=== PATIENT | female | born 1965 | race Caucasian/White ===

== ENCOUNTER 2020-08-27 16:32 | Emergency (ER) | payer OTHER ==
[2020-08-27] MEDS ORDERED: HYDROMORPHONE HCL INJ/PF 2 MG/ML AMPULE IV ONE ×2 (17:17→18:10)
[2020-08-27] MEDS ORDERED: ONDANSETRON HCL INJ/PF 4 MG/2 ML SDV IV ONE (17:17)
--- NOTE | 2020-08-27 17:29 | ER Document Report ---
ED General - General Chief Complaint: Wrist Injury Stated Complaint: FALL/WRIST PAIN Time Seen by Provider: 08/27/20 17:07 Primary Care Provider: LEENA VELAZQUEZ MD [Primary Care Provider] - Follow up as needed - HPI Notes: Chief complaint: Fall with injury right wrist History of present illness: Generally healthy 54-year-old female lost her balance as she reached for a towel while getting out of the shower at home and the towel rack broke causing her to fall to the floor and she injured her wrist by bearing her full weight on the right wrist. The wrist is obviously deformed and painful and EMS was called and she was transported here. They administered morphine during transport. She still rates her pain about 6/10. She denies other injuries and specifically denies striking her head or losing consciousness. Last meal was about noon today. No oral intake since then. She has had general anesthesia several times in the past without complications. Patient is treated for mild hypertension taking hydrochlorothiazide and is on no other long-term treatment for any medical issue. - Related Data Allergies/Adverse Reactions: codeine Allergy (Verified 08/27/20 17:18) naproxen Allergy (Verified 08/27/20 17:18) sulfamethoxazole [From Septra] Allergy (Verified 08/27/20 17:18) trimethoprim [From Aprra] Allergy (Verified 08/27/20 17:18) Home Medications: HCTZ 25MG Past Medical History - General Information source: Patient, Relative, Emergency Med Personnel - Social History Smoking Status: Never Smoker Frequency of alcohol use: Rare Drug Abuse: None Lives with: Family Family History: Reviewed & Not Pertinent - Past Medical History Cardiac Medical History: Reports: Hx Hypertension Endocrine Medical History: Denies: Hx Diabetes Mellitus Type 1, Hx Diabetes Mellitus Type 2 Renal/ Medical History: Reports: Other - 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 Past Surgical History: Reports: Hx Kidney (Renal Surgery) - Left nephrectomy for benign tumor Review of Systems - Review of Systems Notes: Constitutional: Negative for fever. HENT: Negative for sore throat. Eyes: Negative for visual changes. Cardiovascular: Negative for chest pain. Respiratory: Negative for shortness of breath. Gastrointestinal: Negative for abdominal pain, vomiting or diarrhea. Genitourinary: Negative for dysuria. Musculoskeletal: As per HPI. Skin: Negative for rash. Neurological: Negative for headaches, weakness or numbness. 10 point ROS negative except as marked above and in HPI. Physical Exam - Vital signs Vitals: Resp Pulse Ox 19 98 08/27/20 17:48 08/27/20 17:48 - Notes Notes: GENERAL: Female patient approximately stated age with obvious deformity of right wrist appearing in moderate pain. SKIN: Good turgor no rashes. HEAD: Normocephalic atraumatic. EYES: PERRLA. EOMI. Conjunctivae and sclerae clear. EARS: CANALS AND TMS CLEAR. NOSE: CLEAR. MOUTH: Moist mucosa. Good dentition. No stridor or edema. No drooling. NECK: Supple. No masses or thyromegaly. No adenopathy. Carotids 2+ without bruits. No JVD. BACK: Symmetrical without tenderness. CHEST: Respirations unlabored. Breath sounds clear and symmetrical. HEART: Regular rhythm. No murmur gallop or rub. ABDOMEN: Soft nontender without masses, organomegaly or rebound. Bowel sounds normally active. No bruits. GENITALIA: Deferred. EXTREMITIES: Silver fork deformity right wrist with associated swelling and tenderness primarily over the distal radius. Radial and ulnar pulses are strong. Normal capillary refill and sensation distally. No edema. No calf tenderness. Cap refill less than 1.5 seconds. Dorsalis pedis and posterior tibial pulses 3+ and symmetrical. NEUROLOGICAL: GCS 15. Alert and oriented x3. Normal gait. Fluent speech. Cranial nerves II through XII intact. Sensorimotor and cerebellar normal. Normal tone. PSYCHIATRIC: Appropriate affect. Course - Re-evaluation Re-evalutation: 08/27/20 18:43 Patient presented with a Colles' fracture of the right wrist. She was given IV Zofran and IV Dilaudid. Wrist was reduced under procedural sedation and splinted. Good reduction which was tolerated well clinically. Patient is stable for outpatient follow-up with orthopedics. Findings, clinical impression and plan of treatment have been discussed with patient/family. Understanding of current findings and recommendations has been acknowledged by them and there is agreement regarding disposition and follow-up. - Vital Signs Vital signs: Temp Pulse Resp BP Pulse Ox 98.4 F 103 H 17 148/83 H 97 08/27/20 17:53 08/27/20 18:28 08/27/20 18:28 08/27/20 18:28 08/27/20 18:28 - Laboratory Results Critical Laboratory Results Reviewed: No Critical Results - Radiology Results Radiology Results Interpreted: 08/27/20 18:51 Wrist X-Ray 08/27/20 16:45 IMPRESSION: Acute intra-articular fracture dislocation of the distal radius. Dorsal angulation distal fracture fragments. Nondisplaced fracture ulnar styloid process. Elbow X-Ray 08/27/20 17:20 IMPRESSION: NEGATIVE STUDY OF THE RIGHT ELBOW. NO RADIOGRAPHIC EVIDENCE OF ACUTE INJURY. Wrist X-Ray 08/27/20 18:29 IMPRESSION: Postreduction images. Critical Radiology Results Reviewed: Yes Attending or Supervising Physician who Reviewed Radiology: NIURKA BREWSTER Procedures - Conscious Sedation Conscious sedation Time started: 18:18 Time completed: 18:30 Consent obtained: Yes Indication: Closed reduction Colles' fracture Last meal: Noon Emergent conditions applies.: E. - ASA Classification Pt with a mild systemic disease.: P2. - ASA Classification. Airway Evaluation: Normal anatomy Mallampati Classification: Class 2 Used during procedure: Suction available, IV access obtained, Pulse ox on pt., engine monitor on pt. Medications administered: Etomidate I personally performed/intraservice time: Sedation, Procedure, 30 min or less Complications: No - Immobilization Right Arm Time completed: 18:30 Pre-Proc Neuro Vasc Exam: Normal Immobilizer type: Sugar tong, Sling Performed by: PCT Post-Proc Neuro Vasc Exam: Normal Alignment checked and good: Yes - Joint Reduction/Fracture Care Right Wrist Time completed: 18:30 Consent obtained: Yes Conscious sedation: Yes Pre-procedure NV exam: Yes Fracture: Closed Manipulation comment: Manipulation with traction/countertraction Post-procedure NV exam: Yes Post-reduction x-ray: Joint reduced Reduction attempts: 1 Notes: 08/27/20 18:39 This is a patient with a comminuted angulated Colles' fracture. Under procedural sedation with etomidate traction countertraction maneuvers were applied with satisfactory clinical reduction and stable post procedure neurovascular examination. A well-padded reverse sugar tong splint was applied. The procedure was well-tolerated and follow-up films showed satisfactory reduction. Sling applied. Discharge - Discharge Clinical Impression: Colles' fracture right wrist Condition: Stable Disposition: HOME, SELF-CARE Additional Instructions: Fracture You have a fracture. The typical broken bone requires only protection and sufficient time for healing. "Setting" is necessary only if the bones are crooked or out of position. The physician will re-assess you periodically to make certain that the bone heals without complications. It's important that you follow the instructions given you. The initial treatment is immobilization, elevation of the injury, and cold packs. Not all fractures require a cast. Depending on the location and type of fracture, immobilization may consist of a splint, cast, sling, bulky dressing, or simply rest. The length of time required for healing depends on the location and type of fracture, and on the age of the patient. The treatment plan the physician has outlined for you is customized to your fracture and health condition. Call the doctor or return at once if pain becomes severe, or if severe swelling or numbness develop. Elevate the right wrist and apply ice packs intermittently. Take prescribed pain medication as needed. Schedule follow-up within the next 7 days with the referral orthopedist. Return here immediately for any of the following: Uncontrolled pain Numbness of the fingers Inability to move the fingers Prescriptions: Oxycodone HCl/Acetaminophen [Percocet 5-325 mg Tablet] 1 tab PO Q6H PRN #20 tablet PRN Reason: Referrals: LEENA VELAZQUEZ MD [Primary Care Provider] - Follow up as needed ANITA FRANCOIS MD [ACTIVE STAFF] - Follow up as needed
--- NOTE | 2020-08-27 17:44 | RADIOLOGY REPORT (SQ) ---
EXAM DESCRIPTION: WRIST RIGHT 3 VIEWS IMAGES COMPLETED DATE/TIME: 08/27/2020 4:17 pm REASON FOR STUDY: deformity COMPARISON: None. NUMBER OF VIEWS: Three views. TECHNIQUE: AP, lateral, and oblique radiographic images acquired of the right wrist. LIMITATIONS: None. FINDINGS: MINERALIZATION: Normal. BONES: There is an acute impacted and dorsally angulated fracture of the distal radius metaphysis. I ntra-articular component at the radiocarpal joint space. No carpal joint dislocation. Distal ulnar styloid process is also fractured with minimal displacement. Bones of the mid carpus and proximal me tacarpals are intact. SOFT TISSUES: Dorsal soft tissue swelling. OTHER: No other significant finding. IMPRESSION: Acute intra-articular fracture dislocation of the distal radius. Dorsal angulation dist al fracture fragments. Nondisplaced fracture ulnar styloid process. TECHNICAL DOCUMENTATION: JOB ID: [id number] 2010 [employer]- All Rights Reserved Reading location - IP/workstation name: [email or web address]
[2020-08-27] MEDS ORDERED: ETOMIDATE INJ/PF 20 MG/10 ML SDV IV ONE (17:48)
--- NOTE | 2020-08-27 17:48 | RADIOLOGY REPORT (SQ) ---
EXAM DESCRIPTION: ELBOW RIGHT AP/LAT IMAGES COMPLETED DATE/TIME: 08/27/2020 5:33 pm REASON FOR STUDY: injury COMPARISON: None. NUMBER OF VIEWS: Two views. TECHNIQUE: AP and lateral radiographic images acquired of the right elbow. LIMITATIONS: None. FINDINGS: MINERALIZATION: Normal. BONES: No acute fracture or dislocation. No worrisome bone lesions. JOINT: No effusion. SOFT TISSUES: No soft tissue swelling. No foreign body. OTHER: No other significant finding. IMPRESSION: NEGATIVE STUDY OF THE RIGHT ELBOW. NO RADIOGRAPHIC EVIDENCE OF ACUTE INJURY. TECHNICAL DOCUMENTATION: JOB ID: [id number] 2010 [employer]- All Rights Reserved Reading location - IP/workstation name: [email or web address]
--- NOTE | 2020-08-27 18:46 | RADIOLOGY REPORT (SQ) ---
EXAM DESCRIPTION: WRIST RIGHT 2 VIEWS IMAGES COMPLETED DATE/TIME: 08/27/2020 6:35 pm REASON FOR STUDY: post-reduction COMPARISON: None. NUMBER OF VIEWS: Two views. TECHNIQUE: AP and lateral radiographic images acquired of the right wrist. LIMITATIONS: None. FINDINGS: Postreduction images show volar angulation that is improved. No significant lateral displ acement. IMPRESSION: Postreduction images. TECHNICAL DOCUMENTATION: JOB ID: [id number] 2010 [employer]- All Rights Reserved Reading location - IP/workstation name: [email or web address]
[2020-08-27] MEDS ORDERED: METOCLOPRAMIDE HCL INJ/PF 10 MG/2 ML SDV IV ONE (19:47)
[2020-08-27 20:39] VITALS: BP 122/96
--- NOTE | 2020-08-27 21:05 | ER Document Report ---
Doctor's Note Notes: 08/27/20 21:04 The pharmacist from [facility] called and asked us to retransmit the patient's pain medicine prescription because there was an error on their into the system. She verified that nothing had been dispensed to the patient and that it had been received there at that pharmacy. I canceled Dr. Dumont's prescription for Percocet and substituted my own as documented in the chart. The indication on this and was the patient's prescription transmitted normally to [facility] pharmacy.
== END 2020-08-27 20:39 | disposition home or self-care (01) ==
LOC: ER 16:32
DX: S52.531A Colles' fracture of right radius, initial encounter for closed fracture (principal); W18.39XA Other fall on same level, initial encounter; Y93.E1 Activity, personal bathing and showering; I10 Essential (primary) hypertension; Z88.6 Allergy status to analgesic agent
CPT/HCPCS: 99285; 99152; 96374; 96375; 73070; 73100; 73110; 25605; J2765; J1170; J2405; J3490

== ENCOUNTER → 2020-09-04 | Outpatient (CLI) | payer OTHER ==
[2020-09-04 17:04] LABS: ANION GAP 12 (5-19); BLOOD UREA NITROGEN 20 mg/dL (7-20); CALCIUM 9.6 mg/dL (8.4-10.2); CARBON DIOXIDE 28 mmol/L (22-30); CHLORIDE 99 mmol/L (98-107); GLUCOSE 102 mg/dL (75-110); POTASSIUM 3.6 mmol/L (3.6-5.0)
--- NOTE | 2020-09-04 19:34 | EKG REPORT ---
SEVERITY:- NORMAL ECG - SINUS RHYTHM : Confirmed by: Cecily Allen MD 04-Sep-2020 19:33:22
== END ==
LOC: OD 15:52
PROVIDERS: ATTEND Orthopaedic Surgery
DX: Z01.810 Encounter for preprocedural cardiovascular examination (principal); Z01.812 Encounter for preprocedural laboratory examination; I10 Essential (primary) hypertension; S52.501A Unspecified fracture of the lower end of right radius, initial encounter for closed fracture; X58.XXXA Exposure to other specified factors, initial encounter
CPT/HCPCS: 36415; 80048; 93005; 93010